=== PATIENT | male | born 1970 | race Caucasian/White ===

== ENCOUNTER 2017-07-29 21:07 | Emergency (ER) | payer OTHER ==
[~2017-07-29] VITALS: Ht 175.3 cm; Wt 95.5 kg
[~2017-07-29 21:07] MED LIST: BACT800T5 PO; CEPH500C3 PO
[2017-07-29 22:22] VITALS: BP 154/90; PULSE 75; RESP 15; TEMP 98.5; O2SAT 99
[2017-07-29] MEDS ORDERED: TRAM50TA PO (22:45)
[2017-07-29] MEDS ORDERED: IBUPROFEN 600 MG TAB PO ONE (22:45)
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
== END 2017-07-30 00:18 | disposition home or self-care (01) ==
LOC: NEPD 21:07
DX: S16.1XXA Strain of muscle, fascia and tendon at neck level, initial encounter (principal); V43.52XA Car driver injured in collision with other type car in traffic accident, initial encounter
CPT/HCPCS: 72125; 99283